=== PATIENT | female | born 1995 | race Two or more races ===

== ENCOUNTER 2024-03-17 09:42 | Inpatient (IN) | payer OTHER ==
[2024-03-17 11:10] LABS: RETICULOCYTES 1.18 % (0.5-1.5)
[2024-03-17 11:32] LABS: URIC ACID 6.1 mg/dL (2.6-7.2)
[2024-03-17 12:53] LABS: PH,URINE 6.5 (5.0-8.0); URINE APPEARANCE CLEAR; URINE BILIRUBIN NEGATIVE (NEGATIVE); URINE COLOR YELLOW; URINE GLUCOSE (UA) NEGATIVE (NEGATIVE); URINE KETONE NEGATIVE (NEGATIVE); URINE LEUK ESTERASE NEGATIVE (NEGATIVE); URINE NITRITE NEGATIVE (NEGATIVE); URINE PROTEIN 1+ (NEGATIVE); URINE UROBILINOGEN 0.2 mg/dL (0.2-1.0)
[2024-03-17 12:56] LABS: EPI CELLS 12.2 /uL (0-25.1); URINE BACTERIA 631.3 /uL (0-1359); URINE RBC 13.7 /uL (0-23.9); URINE WBC 13.5 /uL (0-25.8)
[2024-03-17 15:43] VITALS: BMI 41.1
[2024-03-17 18:37] LABS: BASO % 0.2 % (0-2.0); EOS % 0.4 % (0-4.5); HEMATOCRIT 33.3 % (32.4-45.2); HEMOGLOBIN 11.6 GM/dL (10.7-15.3); LYMPH % 28.6 % (8-40); MCH 31.8 pg (25.7-33.7); MCHC 34.8 g/dl (32.0-36.0); MEAN CELL VOLUME 91.3 fl (80-96); MEAN PLT VOLUME 10.8 fl (7.5-11.1); MONO % 6.8 % (3.8-10.2); PLATELET COUNT 140 10^3/uL (134-434); RBC 3.65 M/mm3 (3.60-5.2); RDW 12.7 % (11.6-15.6); WHITE BLOOD COUNT 5.3 K/mm3 (4.0-10.0)
[2024-03-17 18:46] LABS: INR 0.93 (0.83-1.09); PROTHROMBIN TIME (PATIENT) 10.7 SEC (9.7-13.0)
[2024-03-17 18:48] LABS: ACTIVATED PTT 28.7 SECONDS (25.2-36.5)
[2024-03-17 19:03] LABS: POTASSIUM 3.9 mmol/L (3.5-5.1)
[2024-03-17 19:05] LABS: ALBUMIN 2.2 g/dl (3.4-5.0); CALCIUM 8.6 mg/dL (8.5-10.1)
[2024-03-17 19:06] LABS: BLOOD UREA NITROGEN 17.3 mg/dL (7-18)
[2024-03-17 19:09] LABS: CREATININE 0.7 mg/dL (0.55-1.3)
[2024-03-17 19:11] LABS: BILIRUBIN,TOTAL 0.4 mg/dL (0.2-1); TOT PROT 5.7 g/dl (6.4-8.2)
[2024-03-17 20:02] LABS: HIV INTERPRETATION NEGATIVE (NEGATIVE)
[2024-03-17] MEDS: ELECTROLYTE-148 SOLN 1,000 ML IV SCH (22:00)
[2024-03-18 07:59] LABS: BASO % 0.4 % (0-2.0); EOS % 0.4 % (0-4.5); HEMOGLOBIN 11.7 GM/dL (10.7-15.3); LYMPH % 34.5 % (8-40); MCH 31.6 pg (25.7-33.7); MCHC 34.3 g/dl (32.0-36.0); MEAN CELL VOLUME 92.1 fl (80-96); MEAN PLT VOLUME 11.2 fl (7.5-11.1); MONO % 6.4 % (3.8-10.2); NEUT % 58.3 % (42.8-82.8); PLATELET COUNT 136 10^3/uL (134-434); RBC 3.69 M/mm3 (3.60-5.2); RDW 12.3 % (11.6-15.6); WHITE BLOOD COUNT 5.2 K/mm3 (4.0-10.0)
[2024-03-18 08:16] LABS: POTASSIUM 4.1 mmol/L (3.5-5.1)
[2024-03-18 08:25] LABS: ALBUMIN 2.2 g/dl (3.4-5.0); BLOOD UREA NITROGEN 14.3 mg/dL (7-18); CALCIUM 8.7 mg/dL (8.5-10.1)
[2024-03-18 08:28] LABS: CREATININE 0.5 mg/dL (0.55-1.3); URIC ACID 5.9 mg/dL (2.6-7.2)
[2024-03-18 08:30] LABS: BILIRUBIN,TOTAL 0.5 mg/dL (0.2-1); TOT PROT 5.5 g/dl (6.4-8.2)
[2024-03-18] MEDS: ELECTROLYTE-148 SOLN 1,000 ML IV SCH (20:45)
[2024-03-18] MEDS: DINOPROSTONE 10 MG VAGINAL SUPPOSITORY VG ONE (22:15)
[2024-03-19 09:03] LABS: RETICULOCYTES 1.04 % (0.5-1.5)
[2024-03-19 09:10] LABS: URIC ACID 5.9 mg/dL (2.6-7.2)
[2024-03-19] MEDS ORDERED: D5W-LR W/ 20 UNITS OXYTOCIN 20 UNIT/1,000 ML INFUS.BAG IV SCH (10:00)
[2024-03-19] MEDS ORDERED: BUTORPHANOL TARTRATE 2 MG/ML VIAL ONE (10:04)
[2024-03-19] MEDS: OXYTOCIN 30 UNITS in 0.9% NS 30 UNIT/500 ML INFUS.BAG IVPB SCH (10:15)
[2024-03-19] MEDS: PROMETHAZINE HCL 25 MG/1 ML VIAL IVPB ONE (10:15)
[2024-03-19] MEDS: BUTORPHANOL TARTRATE 1 MG/ML VIAL IVPUSH ONE (10:15)
[2024-03-19] MEDS ORDERED: FENTANYL/BUPIVACAINE/NS/PF - PCEA - 50 ML DISP.SYRIN EP ONE (23:13)
[2024-03-19] MEDS ORDERED: FENTANYL CITRATE/PF 50 MCG/ML VIAL ONE (23:47)
[2024-03-20] MEDS: FENTANYL/BUPIVACAINE/NS/PF - PCEA - 50 ML DISP.SYRIN EP SCH (00:15)
[2024-03-20] MEDS ORDERED: NALOXONE HCL 0.4 MG/ML VIAL IVPUSH PRN (02:54)
[2024-03-20] MEDS ORDERED: FENTANYL/BUPIVACAINE/NS/PF - PCEA - 50 ML DISP.SYRIN EP ONE (04:32)
[2024-03-20] MEDS: CITRIC ACID/SODIUM CITRATE 30 ML UNIT-DOSE CUP PO ONE (06:20)
[2024-03-20] MEDS ORDERED: METHYLERGONOVINE MALEATE 0.2 MG/1 ML AMP IM PRN (06:28)
[2024-03-20] MEDS ORDERED: ACETAMINOPHEN 325 MG TABLET (FP) PO PRN (06:28)
[2024-03-20] MEDS ORDERED: ACETAMINOPHEN 1000 MG/100 ML BAG IVPB PRN (06:31)
[2024-03-20] MEDS ORDERED: IBUPROFEN 800 MG/8 ML IJ IVPB PRN (06:32)
[2024-03-20] MEDS ORDERED: LABETALOL HCL 20 MG/4 ML VIAL ONE (06:36)
[2024-03-20] MEDS: LABETALOL HCL 20 MG/4 ML VIAL IVPUSH ONE (06:40)
[2024-03-20] MEDS ORDERED: FENTANYL CITRATE/PF 50 MCG/ML VIAL ONE ×2 (07:11→07:37)
[2024-03-20] MEDS ORDERED: AZITHROMYCIN IVPB 500 MG/250 ML BAG IVPB ONE (07:15)
[2024-03-20] MEDS ORDERED: OXYTOCIN 10 UNITS/ML VIAL ONE (07:56)
[2024-03-20] MEDS ORDERED: ONDANSETRON 4 MG/2 ML VIAL ONE (07:56)
[2024-03-20] MEDS ORDERED: ceFAZolin SODIUM 1 GM VIAL ONE (07:56)
[2024-03-20 08:46] LABS: CORD BASE EXCESS -2.4 mmol/L (0-2); CORD HCO3 23.5 mmHg (20-29); CORD PCO2 44.3 mmHg (30-78); CORD pH 7.342 (7.14-7.44)
[2024-03-20 08:48] LABS: CORD HCO3 21.6 mmHg (20-29); CORD pH 7.153 (7.14-7.44)
[2024-03-20 10:03] LABS: BASO % 0.2 % (0-2.0); HEMATOCRIT 27.2 % (32.4-45.2); HEMOGLOBIN 9.1 GM/dL (10.7-15.3); LYMPH % 7.7 % (8-40); MCH 30.6 pg (25.7-33.7); MCHC 33.5 g/dl (32.0-36.0); MEAN CELL VOLUME 91.5 fl (80-96); MONO % 5.8 % (3.8-10.2); NEUT % 86.3 % (42.8-82.8); PLATELET COUNT 117 10^3/uL (134-434); RBC 2.97 M/mm3 (3.60-5.2); RDW 12.3 % (11.6-15.6); WHITE BLOOD COUNT 13.4 K/mm3 (4.0-10.0)
[2024-03-20] MEDS: CEFAZOLIN 500 MG in DEXTROSE 5%-WATER - 50 ML IVPB SCH (12:02)
[2024-03-20] MEDS: NIFEdipine E.R. 30 MG TABLET PO SCH (12:02)
[2024-03-20] MEDS: ENOXAPARIN NA (PORCINE) 40 MG/0.4 ML DISP.SYRIN SQ SCH (12:03)
[2024-03-20] MEDS: OXYTOCIN 20 UNITS in 0.9% NS 20 UNIT/1,000 ML INFUS.BAG IV SCH (14:00)
[2024-03-20] MEDS ORDERED: OXYTOCIN 20 UNITS in 0.9% NS 20 UNIT/1,000 ML INFUS.BAG IV ONE (15:43)
[2024-03-20] MEDS: CEFAZOLIN 1 GM in DEXTROSE 5%-WATER - 50 ML IVPB SCH (18:12)
[2024-03-20] MEDS ORDERED: oxyCODONE HCL 5 MG TABLET PO PRN (18:29)
[2024-03-21] MEDS: OXYTOCIN 20 UNITS in 0.9% NS 20 UNIT/1,000 ML INFUS.BAG IV SCH (04:09)
[2024-03-21] MEDS ORDERED: BISACODYL 10 MG SUPP.RECT RC PRN (06:29)
[2024-03-21 07:49] LABS: BASO % 0.2 % (0-2.0); EOS % 0.1 % (0-4.5); HEMATOCRIT 26.3 % (32.4-45.2); HEMOGLOBIN 8.9 GM/dL (10.7-15.3); LYMPH % 15.6 % (8-40); MCH 31.4 pg (25.7-33.7); MCHC 33.8 g/dl (32.0-36.0); MEAN CELL VOLUME 92.9 fl (80-96); MEAN PLT VOLUME 10.1 fl (7.5-11.1); MONO % 4.5 % (3.8-10.2); NEUT % 79.6 % (42.8-82.8); PLATELET COUNT 147 10^3/uL (134-434); RBC 2.83 M/mm3 (3.60-5.2); RDW 12.5 % (11.6-15.6); WHITE BLOOD COUNT 14.2 K/mm3 (4.0-10.0)
[2024-03-21] MEDS: IBUPROFEN 600 MG TABLET (FP) PO PRN (10:07)
[2024-03-21] MEDS: SIMETHICONE 80 MG TAB.CHEW (FP) PO PRN (21:22)
[2024-03-22] MEDS: NIFEdipine E.R. 30 MG TABLET PO ONE (23:46)
[2024-03-23 09:02] LABS: POTASSIUM 3.9 mmol/L (3.5-5.1)
[2024-03-23 09:04] LABS: ALBUMIN 1.9 g/dl (3.4-5.0); BASO % 0.4 % (0-2.0); BLOOD UREA NITROGEN 11.1 mg/dL (7-18); CALCIUM 8.3 mg/dL (8.5-10.1); EOS % 1.1 % (0-4.5); HEMATOCRIT 22.6 % (32.4-45.2); HEMOGLOBIN 7.7 GM/dL (10.7-15.3); LYMPH % 31.5 % (8-40); MCH 31.7 pg (25.7-33.7); MCHC 33.9 g/dl (32.0-36.0); MEAN CELL VOLUME 93.5 fl (80-96); MEAN PLT VOLUME 10.2 fl (7.5-11.1); MONO % 5.3 % (3.8-10.2); NEUT % 61.7 % (42.8-82.8); PLATELET COUNT 198 10^3/uL (134-434); RBC 2.42 M/mm3 (3.60-5.2); RDW 12.4 % (11.6-15.6); WHITE BLOOD COUNT 6.6 K/mm3 (4.0-10.0)
[2024-03-23 09:07] LABS: CREATININE 0.4 mg/dL (0.55-1.3)
[2024-03-23 09:09] LABS: BILIRUBIN,TOTAL 0.2 mg/dL (0.2-1); TOT PROT 5.1 g/dl (6.4-8.2)
[2024-03-23] MEDS: DIPHTH,PERTUSS(ACELL),TET 0.5 ML DISP.SYRIN IM ONE (10:29)
[2024-03-23 11:17] VITALS: BP 137/89; PULSE 81; RESP 16; TEMP 98.3
== END 2024-03-23 11:40 | disposition home or self-care (01) | DRG 540 ==
LOC: JDEL 09:42 → JLDR 14:50 → J3W 17:30 → JLDR 03-18 22:46 → J3W 03-20 16:00
PROVIDERS: ADMIT Obstetrics & Gynecology; ATTEND Obstetrics & Gynecology
PROC: 10D00Z1 Extraction of Products of Conception, Low, Open Approach (ICD-10-PCS; principal; 2024-03-20)
DX: O14.94 Unspecified pre-eclampsia, complicating childbirth (principal); O62.0 Primary inadequate contractions; O76 Abnormality in fetal heart rate and rhythm complicating labor and delivery; Z3A.37 37 weeks gestation of pregnancy; Z37.0 Single live birth
CPT/HCPCS: 36415; 36600; 80053; 80061; 81003; 82570; 82803; 82977; 83010; 84156; 84443; 84450; 84460; 84550; 85025; 85032; 85045; 85610; 85730; 86850; 86900; 86901; 87389; 88307-TC; 90715